=== PATIENT | male | born 1995 | race Caucasian/White ===

== ENCOUNTER 2022-02-19 07:36 | Emergency (ER) | payer OTHER, SELFPAY ==
[2022-02-19 07:43] VITALS: BP 136/74; PULSE 70; RESP 13; TEMP 36.7; O2SAT 97; BMI 48.7
--- NOTE | 2022-02-19 07:56 | ED_ITS ---
HPI - Dental/Oral General: Chief complaint: General Medical Stated complaint: Possible mouth infection Time Seen by Provider: 02/19/22 07:50 Source: patient Mode of arrival: ambulatory Limitations: no limitations History of Present Illness: Patient is a 27-year-old male who presents to ED today with complaint of right lower dental pain over the past several days. He states he has a molar that is broken throbbing. He states pain is keeping him up at night. Patient states he has plans to contact a dentist this week to set up an appointment. Has not noticed any obvious facial swelling. No fevers. He is eating, drinking, swallowing, controlling secretions, and breathing normally. No neck swelling or pain. MD Complaint: tooth pain Onset (ago): day(s) Duration: constant Severity: severe Associated symptoms: Reports ear or mastoid pain; Denies fever(s) or odynophagia Review of Systems Const: Denies: fever(s), chills, body aches, fatigue or malaise ENMT: Reports: dental pain and ear or mastoid pain; Denies: throat pain, uvular edema, enlarged tonsils, odynophagia, hoarseness, mouth pain, swelling of lips/tongue, oral sores, bleeding gums or dry mouth Card: Denies: chest pain Resp: Denies: dyspnea GI: Denies: nausea or vomiting Musc: Denies: neck pain Skin/Breast: Denies: rash Neuro: Denies: headache(s) Physical Exam Const: COMMON NORMALS: no acute distress, patient oriented x3, no limitations and alert GENERAL APPEARANCE: cooperative HENMT: COMMON NORMALS: normocephalic, atraumatic and TM's normal bilaterally HEAD & SCALP: normal to inspection, normocephalic and atraumatic FACE & SINUS: normal facial exam TYMPANIC MEMBRANE: TM's normal bilaterally MOUTH: Normal oral and palatal mucosa present, lip normal and tongue normal TEETH & GINGIVA: Yes other (no abscess noted) TEETH & GINGIVA IMAGES: 1. decayed molar THROAT: posterior oropharynx normal, tonsils normal and uvula midline; no uvular edema Eye: GENERAL EYE: appearance normal, both eyes and all related structures Neck/C-Spine: COMMON NORMALS: full ROM, no lymphadenopathy and no meningeal signs GENERAL: No anterior neck swelling and No submandibular swelling Cardio: COMMON NORMALS: regular rate and regular rhythm RATE: regular rate RHYTHM: regular rhythm Neuro: HEAVEN COMA SCALE: document GCS findings [place] coma scale eye opening: Spontaneous [place] coma scale verbal response: Orientated [place] coma scale motor response: Obey commands [place] coma scale total score: 15 COMMON NORMALS: patient oriented x3 and CN's II-XII intact bilaterally SENSORIUM/ORIENTATION: Yes alert MENINGEAL SIGNS: Yes no meningeal signs Skin: COMMON NORMALS: no rashes or lesions noted GENERAL SKIN EXAM: no rashes or lesions noted Course Vital Signs: Vital signs: Vital Signs Temperature 98.0 F 02/19/22 07:43 Pulse Rate 70 02/19/22 07:43 Respiratory Rate 13 02/19/22 07:43 Blood Pressure 136/74 02/19/22 07:43 Pulse Oximetry 97 02/19/22 07:43 Oxygen Delivery Me thod 02/19/22 07:43 MDM - Dental/Oral Medical Decision Making Will place on antibiotics. He is requesting small amount of pain medication. I think this is reasonable. Recommend follow-up with a dentist as soon as possible. 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
== END 2022-02-19 08:01 | disposition home or self-care (01) ==
PROVIDERS: Emergency Provider Physician Assistant; PCP Family Medicine
DX: K02.9 Dental caries, unspecified (principal)
CPT/HCPCS: 99283

== ENCOUNTER → 2022-03-03 12:19 | Outpatient (BNVA) | payer OTHER, SELFPAY | PROVIDERS: PCP Family Medicine; Visit Provider Emergency Medicine | DX: Z20.822 Contact with and (suspected) exposure to COVID-19 (principal) | CPT/HCPCS: 87426 ==

== ENCOUNTER → 2023-05-22 13:16 | Outpatient (BNVA) | payer OTHER, SELFPAY | PROVIDERS: PCP Family Medicine; Visit Provider Nurse Practitioner | DX: R39.9 Unspecified symptoms and signs involving the genitourinary system (principal); J06.9 Acute upper respiratory infection, unspecified | CPT/HCPCS: 87426 ==

== ENCOUNTER → 2023-11-12 09:39 | Outpatient (BNVA) | payer OTHER, SELFPAY | PROVIDERS: PCP Family Medicine; Visit Provider Family Medicine | DX: R73.03 Prediabetes (principal); R74.8 Abnormal levels of other serum enzymes; K29.70 Gastritis, unspecified, without bleeding; Z68.42 Body mass index [BMI] 45.0-49.9, adult | CPT/HCPCS: 80053; 80061; 83036; 85025 ==

== ENCOUNTER 2023-12-22 11:55 | Outpatient (CLI) | payer OTHER, SELFPAY ==
--- NOTE | 2023-12-22 12:03 | XRR_ITS ---
PROCEDURE INFORMATION: Exam: XR Abdomen Exam date and time: 12/22/2023 12:50 PM Age: 28 years old Clinical indication: Constipation TECHNIQUE: Imaging protocol: Radiologic exam of the abdomen. Views: 3 or more views. COMPARISON: US abdomen limited [id number] 07/06/2017 9:38 PM FINDINGS: Gastrointestinal tract: Nonobstructive bowel gas pattern. Moderate stool burden. Intraperitoneal space: No gross evidence of free air or pneumatosis. Bones/joints: No evidence of acute osseous abnormality. XR/XR abdomen 3V [id number] IMPRESSION: 1. Nonobstructive bowel gas pattern.
== END 2023-12-22 11:56 | disposition home or self-care (01) ==
LOC: RAD 11:57
PROVIDERS: PCP Family Medicine; Visit Provider Nurse Practitioner
DX: K59.00 Constipation, unspecified (principal)
CPT/HCPCS: 74021

== ENCOUNTER → 2024-02-08 09:23 | Outpatient (BNVA) | payer OTHER, SELFPAY | PROVIDERS: PCP Family Medicine; Visit Provider Family Medicine | DX: E11.9 Type 2 diabetes mellitus without complications (principal); R74.8 Abnormal levels of other serum enzymes; K29.70 Gastritis, unspecified, without bleeding | CPT/HCPCS: 80053; 82977; 83036; 84439; 84443 ==

== ENCOUNTER → 2025-02-13 11:39 | Outpatient (BNVA) | payer OTHER, SELFPAY | PROVIDERS: Family Provider Family Medicine; PCP Family Medicine; Visit Provider Family Medicine | DX: E11.9 Type 2 diabetes mellitus without complications (principal); R03.0 Elevated blood-pressure reading, without diagnosis of hypertension | CPT/HCPCS: 80053; 80061; 83036; 84439; 84443; 85025 ==